=== PATIENT | male | born 1995 | race Caucasian/White ===

== ENCOUNTER 2020-10-01 18:58 | Emergency (ER) | payer OTHER ==
[2020-10-01] MEDS: SODIUM CHLORIDE 0.9% 500 ML 500 ML IV SCH ×3 (20:21→21:02)
[2020-10-01 20:35] LABS: Basophils # (A) 0.4 k/uL (0-0.2); Basophils % (A) 3 %; Eosinophils # (A) 0.1 k/uL (0-0.7); Eosinophils % (A) 1 %; HCT 43.6 % (39.0-53.0); HGB 15.5 gm/dL (13.0-17.5); Lymphocytes # (A) 1.1 k/uL (1.0-4.8); Lymphocytes % (A) 7 %; MCH 30.3 pg (25.0-35.0); MCHC 35.6 g/dL (31.0-37.0); MCV 85.1 fL (80.0-100.0); Mean Platelet Volume 7.4; Monocytes # (A) 1.1 k/uL (0-1.0); Monocytes % (A) 7 %; Neutrophils # (A) 11.6 k/uL (1.3-7.7); Neutrophils % (A) 80 %; Platelet Count 275 k/uL (150-450); RBC 5.12 m/uL (4.30-5.90); RDW 11.8 % (11.5-15.5); WBC 14.5 k/uL (3.8-10.6)
--- NOTE | 2020-10-01 20:44 | ED ---
General Adult HPI - General Chief complaint: Recheck/Abnormal Lab/Rx Stated complaint: Rash, possible allergic reaction, infection Time Seen by Provider: 10/01/20 19:07 Source: patient Mode of arrival: ambulatory Limitations: no limitations - History of Present Illness Initial comments: 24 year-old male patient presents to the emergency department for evaluation of sore throat, body aches, and fever. States that symptoms started on Sunday with swollen lymph nodes, fever, and right sided sore throat. He states that he was seen at [facility] and tested negative for COVID, strep, flu, and mono. He states that they started him on Amoxicillin and discharged him. He then went to [facility] on Sunday because he was not feeling any better and they did labs, found he had a high white blood cell count, and sent home on prednisone, ultram, and augmentin. Patient has been taking the Augmentin and steroids since Sunday and still is not feeling better today. He states that he continues to have fevers run 100F. States throat feels worse and is having difficulty swallowing. Denies any nausea or vomiting. Denies abdominal pain. Patient denies any recent rash, cough, shortness of breath, chest pain, diarrhea, constipation, back pain, numbness, tingling, dizziness, weakness, hematuria, dysuria, urinary urgency, urinary frequency, headache, visual changes, or any other complaints. - Related Data Home Medications Medication Instructions Recorded Confirmed Amoxic-Pot Clav 875-125Mg 1 tab PO BID 10/01/20 10/01/20 [Augmentin 875-125] predniSONE [Deltasone] 20 mg PO BID 10/01/20 10/01/20 traMADol HCL 50 - 100 mg PO Q6H PRN 10/01/20 10/01/20 Allergies Allergy/AdvReac Type Severity Reaction Status Date / Time ibuprofen [From Motrin] Allergy Anaphylaxis Verified 10/01/20 20:45 Review of Systems ROS Statement: Those systems with pertinent positive or pertinent negative responses have been documented in the HPI. ROS Other: All systems not noted in ROS Statement are negative. Past Medical History Past Medical History: Asthma Additional Past Medical History / Comment(s): INGUINAL HERNIA History of Any Multi-Drug Resistant Organisms: None Reported Past Surgical History: Cholecystectomy Past Anesthesia/Blood Transfusion Reactions: No Reported Reaction Past Psychological History: No Psychological Hx Reported Smoking Status: Current every day smoker Past Alcohol Use History: Occasional Past Drug Use History: Marijuana General Exam Limitations: no limitations General appearance: alert, in no apparent distress, other (This is a well developed, well nourished adult male patient in no acute distress. V/S upon presentation are temp 98.6, pulse 98 resp 18, BP 129/82, pulse 98%) ENT exam: Absent: normal exam, normal oropharynx (Phargyngeal erythema, tonsillar hypertrophy, bilateral tonsillar exudate. Tonsils are symmetric. Uvula is midline. ) Respiratory exam: Present: normal lung sounds bilaterally. Absent: respiratory distress, wheezes, rales, rhonchi, stridor Cardiovascular Exam: Present: regular rate, normal rhythm, normal heart sounds. Absent: systolic murmur, diastolic murmur, rubs, gallop, clicks GI/Abdominal exam: Present: soft, normal bowel sounds. Absent: distended, tenderness, guarding, rebound, rigid Neurological exam: Present: alert, oriented X3, CN II-XII intact Psychiatric exam: Present: normal affect, normal mood Skin exam: Present: warm, dry, intact, normal color. Absent: rash Course Vital Signs 10/01/20 10/01/20 10/01/20 19:02 20:45 21:55 Temperature 98.6 F 99.3 F 99.1 F Pulse Rate 98 89 88 Respiratory 18 16 18 Rate Blood Pressure 129/82 120/67 116/66 O2 Sat by Pulse 98 100 99 Oximetry Medical Decision Making - Medical Decision Making 24-year-old male patient presenting to the emergency department today with six- day history of the lymphadenopathy, sore throat, body aches, and fever is presenting to the emergency department today for persistent symptoms. He states he does feel like his sore throat is worsening making it difficult to swallow. He has been taking Augmentin and prednisone since Sunday. Physical examination did reveal bilateral tonsillar hypertrophy and exudate, uvula is midline. No intraoral lesions. He also did have a flat patch of erythema noted over the middle upper abdomen, not itchy. Labs reviewed and did reveal white blood cell count of 14.5, neutrophils 11.6. Remainder of labs are unremarkable. Strep is negative. Heterophile is negative. He also tested negative for cocaine and influenza at a previous ER visit this week. We did perform computed tomography scan of the soft tissues of the neck with contrast, there is no evidence for abscess or fluid collection. Did show bilateral tonsillar enlargement and adenoid enlargement. Upon reevaluation patient is resting couple band bed. He did have 99 temperature here in the emergency department. Current plan is to await blood cultures and throat cultures and to continue Augmentin and steroids. He'll be given ENT follow-up. He is instructed to follow-up with his primary care physician for recheck in 1-2 days. Return parameters were discussed in detail. He verbalizes understanding and agrees with this plan. - Lab Data Result diagrams: 10/01/20 20:15 10/01/20 20:15 Lab Results 10/01/20 10/01/20 10/01/20 Range/Units 20:15 20:15 20:15 WBC 14.5 H (3.8-10.6) k/uL RBC 5.12 (4.30-5.90) m/uL Hgb 15.5 (13.0-17.5) gm/dL Hct 43.6 (39.0-53.0) % MCV 85.1 (80.0-100.0) fL MCH 30.3 (25.0-35.0) pg MCHC 35.6 (31.0-37.0) g/dL RDW 11.8 (11.5-15.5) % Plt Count 275 (150-450) k/uL MPV 7.4 Neutrophils % 80 % Lymphocytes % 7 % Monocytes % 7 % Eosinophils % 1 % Basophils % 3 % Neutrophils # 11.6 H (1.3-7.7) k/uL Lymphocytes # 1.1 (1.0-4.8) k/uL Monocytes # 1.1 H (0-1.0) k/uL Eosinophils # 0.1 (0-0.7) k/uL Basophils # 0.4 H (0-0.2) k/uL Sodium 137 (137-145) mmol/L Potassium 3.7 (3.5-5.1) mmol/L Chloride 98 (98-107) mmol/L Carbon Dioxide 27 (22-30) mmol/L Anion Gap 12 mmol/L BUN 11 (9-20) mg/dL Creatinine 0.90 (0.66-1.25) mg/dL Est GFR (CKD-EPI)AfAm >90 (>60 ml/min/1.73 sqM) Est GFR (CKD-EPI)NonAf >90 (>60 ml/min/1.73 sqM) Glucose 91 (74-99) mg/dL Plasma Lactic Acid Sean 1.1 (0.7-2.0) mmol/L Calcium 9.6 (8.4-10.2) mg/dL Total Bilirubin 1.2 (0.2-1.3) mg/dL AST 30 (17-59) U/L ALT 40 (4-49) U/L Alkaline Phosphatase 66 (38-126) U/L Total Protein 8.0 (6.3-8.2) g/dL Albumin 4.5 (3.5-5.0) g/dL Heterophile Antibody (Negative) Group A Strep Rapid (Negative) 10/01/20 10/01/20 Range/Units 20:15 20:15 WBC (3.8-10.6) k/uL RBC (4.30-5.90) m/uL Hgb (13.0-17.5) gm/dL Hct (39.0-53.0) % MCV (80.0-100.0) fL MCH (25.0-35.0) pg MCHC (31.0-37.0) g/dL RDW (11.5-15.5) % Plt Count (150-450) k/uL MPV Neutrophils % % Lymphocytes % % Monocytes % % Eosinophils % % Basophils % % Neutrophils # (1.3-7.7) k/uL Lymphocytes # (1.0-4.8) k/uL Monocytes # (0-1.0) k/uL Eosinophils # (0-0.7) k/uL Basophils # (0-0.2) k/uL Sodium (137-145) mmol/L Potassium (3.5-5.1) mmol/L Chloride (98-107) mmol/L Carbon Dioxide (22-30) mmol/L Anion Gap mmol/L BUN (9-20) mg/dL Creatinine (0.66-1.25) mg/dL Est GFR (CKD-EPI)AfAm (>60 ml/min/1.73 sqM) Est GFR (CKD-EPI)NonAf (>60 ml/min/1.73 sqM) Glucose (74-99) mg/dL Plasma Lactic Acid Sean (0.7-2.0) mmol/L Calcium (8.4-10.2) mg/dL Total Bilirubin (0.2-1.3) mg/dL AST (17-59) U/L ALT (4-49) U/L Alkaline Phosphatase (38-126) U/L Total Protein (6.3-8.2) g/dL Albumin (3.5-5.0) g/dL Heterophile Antibody Negative (Negative) Group A Strep Rapid Negative (Negative) - Radiology Data Radiology results: report reviewed, image reviewed CT soft tissue neck with contrast is obtained. Report was reviewed in its entirety. Impression by Dr. Hollins shows enlarged tonsils and adenoids. No abscess. Disposition Clinical Impression: Tonsillitis Disposition: HOME SELF-CARE Condition: Good Instructions (If sedation given, give patient instructions): Tonsillitis (ED) Additional Instructions: Continue home medications, Use Magic mouthwash as needed for pain control. Follow-up with the ENT specialist as planned if you're not feeling any better by Sunday. Follow-up through primary care physician for recheck in 1-2 days. Return to the emergency room for any new, worsening, or concerning symptoms. Is patient prescribed a controlled substance at d/c from ED?: No Referrals: Zan Conti MD [STAFF PHYSICIAN] - 1-2 days Time of Disposition: 22:19
[2020-10-01 20:53] LABS: ALT 40 U/L (4-49); AST 30 U/L (17-59); African American GFR (CKD) >90 (>60 ml/min/1.73 sqM); Albumin 4.5 g/dL (3.5-5.0); Alkaline Phosphatase 66 U/L (38-126); Anion Gap 12 mmol/L; Blood Urea Nitrogen 11 mg/dL (9-20); Calcium 9.6 mg/dL (8.4-10.2); Carbon Dioxide 27 mmol/L (22-30); Chloride 98 mmol/L (98-107); Glucose 91 mg/dL (74-99); Non-African American GFR(CKD) >90 (>60 ml/min/1.73 sqM); Potassium 3.7 mmol/L (3.5-5.1); Sodium 137 mmol/L (137-145); Total Bilirubin 1.2 mg/dL (0.2-1.3)
--- NOTE | 2020-10-01 21:40 | CT ---
EXAMINATION TYPE: CT soft tissue neck w con DATE OF EXAM: 10/01/2020 COMPARISON: None HISTORY: Throat pain, swelling CT DLP: 253 mGycm Automated exposure control for dose reduction was used. CONTRAST: Performed with IV Contrast, patient injected with 100 mL of Isovue 300. Images were obtained from the level of the aortic arch to the top of the orbits with IV contrast. There is no evidence of orbital mass. Globes are symmetric. There is fairly normal aeration of the pa ranasal sinuses. I see no bony destructive process. There is normal aeration of the mastoid sinuses. Epiglottis is normal. There is bilateral enlargement of the tonsils that measure 3 x 2 cm. There is n o evidence of an abscess. There is some hypertrophy of the adenoids that measure 1.8 cm. There is no evidence of retropharyngeal abscess. New graft there is normal enhancement of the carotid arteries a nd jugular veins. Subglottic trachea appears normal. There is no evidence of pharyngeal mass. The tongue appears normal . Superior mediastinum shows no adenopathy. Thyroid gland is symmetric. The parotid gland and submandibular salivary glands show no evidence of a mass. IMPRESSION: Enlarged tonsils and adenoids. No abscess.
[2020-10-01 22:20] VITALS: BP 116/66; PULSE 88; RESP 18; TEMP 99.1
[2020-10-01] MEDS ORDERED: cefTRIAXone IN SWFI 1,000 MG/10 ML SYRINGE IVP STA (22:33)
== END 2020-10-01 22:45 | disposition home or self-care (01) ==
LOC: EC 18:58
DX: J03.90 Acute tonsillitis, unspecified (principal); J45.909 Unspecified asthma, uncomplicated; F17.200 Nicotine dependence, unspecified, uncomplicated; Z79.52 Long term (current) use of systemic steroids; Z88.6 Allergy status to analgesic agent; Z90.49 Acquired absence of other specified parts of digestive tract
CPT/HCPCS: 36415; 80053; 83605; 85025; 86308; 87040; 87070; 87081; 87430; 70491; 99284; 96374; 96361; J0696; Q9967